=== PATIENT | male | born 1935 | race Caucasian/White ===

== ENCOUNTER 2020-04-15 12:48 | Inpatient (IN) | payer MEDICARE, SELFPAY ==
--- NOTE | ~2020-04-15 | CT_ITS ---
EXAMINATION: CT chest abdomen pelvis w con DATE: 04/17/2020 11:31 INDICATION: Leukocytosis. Scrotal cellulitis. TECHNIQUE: Computed tomography (CT) of the chest, abdomen, and pelvis was performed with 100 mL Omnip aque 350 intravenous contrast. Automated exposure control and iterative reconstruction technique were employed. The dose-length product was 1008.15 mGy-cm. COMPARISON: None FINDINGS: CHEST CT: Motion artifact is noted. There is smooth septal thickening in the lungs, consistent with mild pulmon tigre edema. There are small pleural effusions. The heart size is normal. There are coronary artery yuridia cifications. No pericardial effusion. There is wall thickening of the distal esophagus, likely esopha gitis. There is thoracic dextroscoliosis and mild spondylosis. ABDOMEN/PELVIS CT: Motion artifact is noted. There are cysts in the liver measuring up to 13 mm. The gallbladder, pancre as, adrenal glands, and left kidney are normal. There is a 7 mm mass in right kidney that is too smal l to characterize, but likely a cyst. Stool distends the rectum. There is mild diffuse bladder wall t hickening, likely secondary to chronic outlet obstruction from the mildly enlarged prostate. The appe ndix is normal. There is a right inguinal hernia containing nonobstructed ileum. There is a left ingu inal hernia containing nonobstructed small bowel. Partially visualized is perianal subcutaneous fat s tranding. There are no pathologically enlarged lymph nodes. There is no free intraperitoneal fluid. T here is moderate lumbar spondylosis. IMPRESSION: 1. Mild pulmonary edema with small pleural effusions. 2. Wall thickening of the distal esophagus, likely esophagitis. 3. Stool distends the rectum. 4. Bilateral inguinal hernias containing nonobstructed small bowel. 5. Partially visualized perianal subcutaneous fat stranding, consistent with inflammation. Reviewed, dictated and finalized at location A. IMPRESSION: 1. Mild pulmonary edema with small pleural effusions. 2. Wall thickening of the distal esophagus, likely esophagitis. 3. Stool distends the rectum. 4. Bilateral inguinal hernias containing nonobstructed small bowel. 5. Partially visualized perianal subcutaneous fat stranding, consistent with in flammation.
--- NOTE | ~2020-04-15 | US_ITS ---
EXAMINATION: US soft tissue buttock RT DATE: 04/20/2020 12:44 INDICATION: Right buttock abscess TECHNIQUE: Multiple grayscale and Doppler ultrasound images of the region of concern at the right but tock were obtained. COMPARISON: None FINDINGS: Poorly defined hypoechoic edema interspersed amongst the more hyperechoic fat at the region of concer n. There is a somewhat elongated parenchymal region of decreased echogenicity situated between the de rmis and the subdermal fat which measures approximately 2.1 x 1.3 x 0.8 cm which appears to correspon d to region of more dense edema/phlegmonous change situated posterior to the anus along the right bird e of the gluteal cleft. No organized abscess. IMPRESSION: 1. Subcutaneous surrounding a small region of likely phlegmonous change at the right buttock. No orga nized abscess. Reviewed, dictated and finalized at location B. IMPRESSION: 1. Subcutaneous surrounding a small region of likely phlegmonous change at the right buttock. No organized abscess.
[2020-04-15 13:00] VITALS: BP 122/58; PULSE 85; RESP 18; TEMP 37.7; O2SAT 95
[2020-04-15 13:51] LABS: Hematocrit 24.7 % (37.0-46.0); Hemoglobin 7.7 g/dL (12.4-15.3); Mean Corpuscular HGB Conc 31.2 g/dL (32.0-36.0); Mean Corpuscular Hemoglobin 26.1 pg (27.0-31.0); Mean Corpuscular Volume 83.7 fL (78.0-102.0); Mean Platelet Volume 10.4 fl (8.7-11.0); Platelet Count Result 274 K/mm3 (150-420); Red Blood Count 2.95 M/mm3 (4.70-6.10); Red Cell Distribution Width 16.1 % (11.6-14.4); White Blood Count 17.1 K/mm3 (4.8-10.8)
[2020-04-15 13:52] LABS: Add Urine Microscopic? YES; Appearance Urine Sl Cloudy (Clear); Bilirubin Urine Negative (Negative); Blood Urine 2+ (Negative); Color Urine Amber (Yellow); Glucose Urine UA Negative (Negative); Ketones Urine Negative (Negative); Leukocyte Esterase Ur 1+ (Negative); Nitrate Urine Positive (Negative); Protein Urine 1+ (Negative); Specific Grav Ur 1.025 (1.010-1.020); pH Urine 6.5 (5.0-8.0)
[2020-04-15 13:57] LABS: Bacteria Urine 3+ /hpf; Squamous Epithelial Cell Urine Rare /hpf (Few); WBC Urine 16-20 /hpf (0-3)
[2020-04-15 14:05] LABS: Alanine Aminotransferase 37 U/L (16-63); Albumin Level 2.2 g/dL (3.4-5.0); Alkaline Phosphatase 69 U/L (46-116); Anion Gap 14 mmol/L (8-16); Aspartate Amino Transferase 46 U/L (15-37); Bilirubin,Total 0.4 mg/dL (0.00-1.00); Blood Urea Nitrogen 33 mg/dL (7-18); Calcium 8.5 mg/dL (8.5-10.1); Carbon Dioxide 21 mmol/L (21-32); Chloride 100 mmol/L (98-108); Estimated Glomerular Filt Rate > 60; Glucose 136 mg/dL (70-99); Osmolality Calculated 289 mOsm/kg (285-295); Sodium 135 mmol/L (136-145)
[2020-04-15 14:22] LABS: Lactic Acid Reflex 3.1 mmol/L (0.4-2.0)
--- NOTE | 2020-04-15 14:22 | ED.MALEGU ---
HPI - Male Genitourinary General Chief complaint: Urogenital-Male Stated complaint: scrotum pain and swelling Source: patient and family Mode of arrival: wheelchair Limitations: physical limitation, clinical condition and dementia History of Present Illness HPI Narrative: This is an 85-year-old gentleman that presents with his with no previous past medical history, except for he lives at home and has history of dementia. The patient developed some scrotal swelling and pain he is nonambulatory his takes good care of him and has noticed that he has been having some redness and scrotal swelling with discomfort. Patient has a history of urinary tract infections currently is having some urinary hesitancy with no hematuria there is no diarrhea constipation no hematuria no nausea vomiting. The patient is pleasantly demented currently on no med medications, is having a low-grade temp of 99 8. Patient is nonverbal, communication is via his lives at home and takes care of the patient. MD Complaint: testicle pain and testicle swelling Onset (ago): day(s) Duration: constant Location: right testicle and left testicle Severity: moderate Severity scale (1-10): 7 Quality: aching Relieving factors: rest Exacerbating factors: movement Related Data Home Medications Medication Instructions Recorded Confirmed No Home Medications 04/15/20 04/15/20 Allergies Allergy/AdvReac Type Severity Reaction Status Date / Time No Known Allergies Allergy Verified 04/15/20 13:35 Review of Systems Review of Systems: All systems reviewed & are unremarkable except as noted in HPI and below PMFSH Past Medical History Medical History Dementia Exam Const: General: cooperative and ill appearing Orientation/consciousness: confusion Limitations: altered mental status and physical limitations HENMT: Head: normal to inspection Face and sinus: normal facial exam Mouth: Yes Normal oral and palatal mucosa present Eyes: General: appearance normal, both eyes and all related structures Eyelids: eyelids normal Conjunctivae: conjunctivae normal Sclera: sclerae normal Pupils: Equal, round and reactive pupils present Chest: Chest palpation & inspection: normal inspection of the chest and normal palpation of entire chest wall Resp: Effort & Inspection: normal respiratory effort Auscultation: clear to auscultation bilaterally Cardio: Jugular venous distension: no JVD Palpation: normal PMI Rate: regular rate Rhythm: regular rhythm Heart sounds: S1 normal heart sound present and S2 normal heart sound present GI: Percussion: Yes normal to percussion : Penis: Yes normal penis Scrotum: edematous, erythematous and scrotal swelling Back/Spine/Pelvis: Back: no CVA tenderness Skin: General skin exam: normal color and no rashes or lesions noted Psych: Appearance: well kempt Course Course Emergency Course: reassessment of patient continues to have scrotal discomfort received some Toradol for pain, and discussed the labs and urinalysis results with the patient's and advised that he will be receiving IV fluids and IV antibiotics and he will be admitted to the hospital. Vital Signs Vital signs: Vital Signs Temperature 37.7 C H 04/15/20 13:00 Pulse Rate 85 04/15/20 13:00 Respiratory Rate 18 04/15/20 13:00 Blood Pressure 122/58 L 04/15/20 13:00 Pulse Oximetry 95 04/15/20 13:00 Temperature 37.7 C H 04/15/20 13:00 Pulse Rate 85 04/15/20 13:00 Respiratory Rate 18 04/15/20 13:00 Blood Pressure 122/58 L 04/15/20 13:00 Pulse Oximetry 95 04/15/20 13:00 MDM - Male Genitourinary Lab Data Result diagrams: 04/15/20 13:45 04/15/20 13:45 Labs: Lab Results 04/15/20 04/15/20 04/15/20 Range/Units 13:37 13:45 13:45 WBC 17.1 H (4.8-10.8) K/mm3 RBC 2.95 L (4.70-6.10) M/mm3 Hgb 7.7 L (12.4-15.3) g/dL
[2020-04-15] MEDS: SODIUM CHLORIDE 0.9% IV 1,000 ML 999 ML IV CONT ×2 (14:33→21:17)
[2020-04-15] MEDS: KETOROLAC 30 MG/ML VIAL (*BKC) IV PUSH (14:33)
[2020-04-15 15:15] VITALS: BP 98/61; PULSE 84; RESP 18; O2SAT 98
[2020-04-15 15:35] VITALS: BP 94/31; PULSE 85; RESP 18; TEMP 36.7; O2SAT 97; BMI 22.1
--- NOTE | 2020-04-15 15:35 | ADMGEN ---
This patient, Keith Hobson, was admitted to 2nd Floor Room 207-2. Patient/family oriented to hospital policies and general routines including ID bracelet, bed and alarms, visiting hours, pain management, procedures, bathroom and other care routines, personal items, smoking policy, room service/diet, and visiting hours. Information on how to activate the Rapid Response Team has been discussed. Patient/Family are encouraged to report perceived risks to care and to ask questions if they do not understand what they are told or what they should do.
[2020-04-15 17:06] LABS: Reflex Lactic Acid Yes or No Add Lactic
[2020-04-15] MEDS: SODIUM CHLORIDE 0.9% IV 1,000 ML 100 ML IV CONT (17:09)
[2020-04-15] MEDS: ONDANSETRON INJ 4 MG/2 ML VIAL IV PUSH (17:20)
--- NOTE | 2020-04-15 17:33 | PC.NURSE ---
Patient took 1 bite of supper, would not take any further bites. Zofran given per order. Patient resting on right site. IV fluids infusing. Awake, alert x0.
[2020-04-15 17:54] LABS: Lactic Acid 1.2 mmol/L (0.4-2.0)
--- NOTE | 2020-04-15 18:50 | PC.NURSE ---
in room with patient. Provided with cottage cheese cup and fruit cup. Bed alarm active.
[2020-04-15 20:45] VITALS: BP 84/48; PULSE 76; RESP 18; TEMP 37.4; O2SAT 98
--- NOTE | 2020-04-15 21:12 | PC.NURSE ---
notified that patient's current temp is 99.3 and blood pressure 84/48 with manual blood pressure cuff. New orders received to give NS 1 Liter bolus and Tylenol Suppository Q6H prn.
[2020-04-15 21:35] LABS: Occult Blood Negative (Negative)
[2020-04-15 23:35] VITALS: BP 103/42; PULSE 76; RESP 18; TEMP 37.1; O2SAT 97
[2020-04-16] VITALS (16 sets, daily range): BP systolic 78–122; BP diastolic 30–77; PULSE 60–91; RESP 16–20; TEMP 36.2–38.7; O2SAT 91–100
[2020-04-16] MEDS: ACETAMINOPHEN 650 MG SUPPOSITORY RECTAL ×3 (02:54→20:58)
[2020-04-16] MEDS: ONDANSETRON INJ 4 MG/2 ML VIAL IV PUSH ×3 (02:55→23:28)
[2020-04-16] MEDS: SODIUM CHLORIDE 0.9% IV 1,000 ML 100 ML IV CONT (03:28)
[2020-04-16 06:03] LABS: Basophils Absolute Auto 0.02 K/mm3 (0.00-0.10); Basophils Percent Auto 0.2 % (0.0-1.0); Eosinophils Percent Auto 0.8 % (1.0-6.0); Immature Granulocyte Absolute 0.08 K/mm3 (0.00-0.00); Immature Granulocyte Percent A 0.6 % (0.0-0.0); Lymphocytes Absolute Auto 0.69 K/mm3 (1.10-4.50); Lymphocytes Percent Auto 5.5 % (18.0-42.0); Mean Corpuscular Hemoglobin 25.8 pg (27.0-31.0); Mean Corpuscular Volume 83.3 fL (78.0-102.0); Mean Platelet Volume 9.6 fl (8.7-11.0); Monocytes Percent Auto 4.8 % (2.0-11.0); Neutrophils Absolute Auto 11.1 K/mm3 (1.7-7.2); Neutrophils Percent Auto 88.1 % (50.0-70.0); Platelet Count Result 220 K/mm3 (150-420); Red Cell Distribution Width 16.1 % (11.6-14.4); White Blood Count 12.6 K/mm3 (4.8-10.8)
[2020-04-16 06:31] LABS: Hemoglobin 6.2 g/dL (12.4-15.3)
--- NOTE | 2020-04-16 06:32 | PC.NURSE ---
Lab called to report critical Hgb of 6.2 and Hct of 20.1.
[2020-04-16 06:36] LABS: Alanine Aminotransferase 33 U/L (16-63); Albumin Level 1.8 g/dL (3.4-5.0); Alkaline Phosphatase 54 U/L (46-116); Anion Gap 11 mmol/L (8-16); Aspartate Amino Transferase 32 U/L (15-37); Bilirubin,Total 0.3 mg/dL (0.00-1.00); Blood Urea Nitrogen 30 mg/dL (7-18); Calcium 7.5 mg/dL (8.5-10.1); Carbon Dioxide 21 mmol/L (21-32); Chloride 107 mmol/L (98-108); Estimated CRCL calculation 55 ml/min; Estimated Glomerular Filt Rate > 60; Glucose 104 mg/dL (70-99); Osmolality Calculated 294 mOsm/kg (285-295); Potassium 3.6 mmol/L (3.5-5.1); Sodium 139 mmol/L (136-145); Total Protein 5.1 g/dL (6.4-8.2)
--- NOTE | 2020-04-16 06:36 | PC.NURSE ---
Dr. Miller notified of critical H&H values. New orders received and noted.
[2020-04-16 06:52] LABS: Folic Acid 16.8 ng/mL (8.6->20); Iron 7 ug/dL (65-175); Percent Iron Saturation 4 % (12-57); Vitamin B12 524 pg/mL (193-986)
[2020-04-16 08:48] LABS: Ferritin 101 ng/mL (26-388)
--- NOTE | 2020-04-16 09:58 | PM.IMHP ---
H&P: HPI History of Present Illness Date/Time: 04/16/20 09:58 Chief complaint: scrotum pain and swelling Narrative: Keith Hobsno is a 85 year old male that presented to our ED with swollen scrotum . Patient has a past medical history of dementia. Patient is a poor historian and is unable to participate in this assessment. Information obtained from medical records. According to notes patient developed scrotal swelling. Patient lives at home with his noticed that her was uncomfortable and noticed redness in his scrotum area she also noted that he is currently having urinary hesitancy. Patient does not appear to be in any distress at this time. Review of Systems Review of Systems: All systems reviewed & are unremarkable except as noted in HPI and below (10 point system review) PMFSH Past Medical History Medical History Dementia Social History Social History Smoking status: Unknown if ever smoked Alcohol intake: never Substance use: never Gender identity (if verbalized by the patient): Male Spiritual care concerns: No Meds Home Medications and Allergies Home Medications Medication Instructions Recorded Confirmed Type No Home Medications 04/15/20 04/15/20 History Allergies Allergy/AdvReac Type Severity Reaction Status Date / Time No Known Allergies Allergy Verified 04/15/20 13:35 Vital Signs Vital Signs - 24 hr 04/15/20 13:00 04/15/20 15:15 04/15/20 15:35 Temperature 99.8 F H 98.1 F Pulse Rate 85 84 85 Respiratory Rate 18 18 18 Blood Pressure 122/58 L 98/61 L 94/31 L Pulse Oximetry 95 98 97 04/15/20 20:45 04/15/20 23:35 04/16/20 02:54 Temperature 99.3 F 98.7 F 100 F H Pulse Rate 76 76 Respiratory Rate 18 18 Blood Pressure 84/48 L 103/42 L Pulse Oximetry 98 97 04/16/20 03:03 04/16/20 08:00 Temperature 100 F H 97.4 F L Pulse Rate 78 60 Respiratory Rate 20 18 Blood Pressure 100/45 L 90/30 L Pulse Oximetry 95 97 Exam Narrative: Exam Narrative: GENERAL: Frail demented in no apparent distress. HEAD: normocephalic, atraumatic. EYES: PERRL. Sclera clear/white. Vision is grossly intact. EARS: External ears normal, auditory canals clear and without drainage, TMs normal without perforation. Hearing grossly intact. NOSE: External nose normal with no obvious nasal discharge, nares without redness, no rhinorrhea. THROAT: Mucous membranes moist, posterior pharynx clear. NECK: Neck supple, non-tender without lymphadenopathy, masses or thyromegaly. CARDIOVASCULAR: Regular rate and rhythm without murmurs, gallops, or rubs. RESPIRATORY: Clear to auscultation. Breath sounds equal bilaterally. No wheezes, rales, or rhonchi. GASTROINTESTINAL: Abdomen soft, non-tender, nondistended. Bowel sounds are active. No hepato-splenomegaly, or palpable masses. No guarding. SKIN: warm, intact with no suspicious lesions or rash, scrotum area slightly edematous erythematous. NEURO: awake, alert, and oriented to person, place and time. There were no obvious focal neurologic abnormalities. Steady gait EXTREMITIES: Normal range of motion. No edema. No calf tenderness. Negative Homans sign bilaterally. BACK: Nontender without deformity or crepitance. No flank tenderness. H&P: Results Labs Labs: Short CBC 04/15/20 04/16/20 Range/Units 13:45 05:54 WBC 17.1 H 12.6 H (4.8-10.8) K/mm3 Hgb 7.7 L 6.2 L* (12.4-15.3) g/dL Hct 24.7 L 20.0 L (37.0-46.0) % Plt Count 274 220 (150-420) K/mm3 BMP 04/15/20 04/16/20 13:45 05:54 Sodium 135 L 139 Potassium 4.0 3.6 Chloride 100 107 Carbon Dioxide 21 21 BUN 33 H 30 H Creatinine 1.09 0.84 Glucose 136 H 104 H Calcium 8.5 7.5 L Liver Function 04/15/20 04/16/20 Range/Units 13:45 05:54 Total Bilirubin 0.4 0.3 (0.00-1.00) mg/dL AST 46 H 32 (15-37) U/L ALT 37 33 (16-63) U/L
[2020-04-16] MEDS: SODIUM CHLORIDE 0.9% IV 250 ML 100 ML IV CONT (10:26)
[2020-04-16] MEDS: FERROUS GLUCONATE 324 MG TABLET 325 MG PO (10:26)
--- NOTE | 2020-04-16 11:40 | PC.NURSE ---
rate increased to 125ml/hr. Patient tolerating Blood transfusion well.
[2020-04-16 14:12] LABS: Hemoglobin 8.1 g/dL (12.4-15.3)
[2020-04-16 18:06] LABS: Hematocrit 28.6 % (37.0-46.0); Hemoglobin 8.8 g/dL (12.4-15.3)
[2020-04-16] MEDS: LORazepam INJ (*CRX) 2 MG/ML VIAL 0.5 MG IV PUSH (18:39)
--- NOTE | 2020-04-16 18:44 | PC.NURSE ---
Patients left. Patient cont. to be restless and appears continually moaning. Patient given Ativan per order. Resting in bed with hob elevated. Pillow applied for comfort. Bed alarm active.
[2020-04-16] MEDS: DOCUSATE SODIUM LIQ 100 MG/10 ML UDC PO (20:58)
[2020-04-17] VITALS (13 sets, daily range): BP systolic 105–143; BP diastolic 41–62; PULSE 79–95; RESP 20–24; TEMP 36.7–38; O2SAT 92–97
[2020-04-17 05:46] LABS: Basophils Absolute Auto 0.03 K/mm3 (0.00-0.10); Basophils Percent Auto 0.2 % (0.0-1.0); Eosinophils Absolute Auto 0.17 K/mm3 (0.02-0.50); Eosinophils Percent Auto 1.2 % (1.0-6.0); Hematocrit 24.5 % (37.0-46.0); Hemoglobin 7.6 g/dL (12.4-15.3); Immature Granulocyte Absolute 0.09 K/mm3 (0.00-0.00); Immature Granulocyte Percent A 0.6 % (0.0-0.0); Lymphocytes Absolute Auto 1.26 K/mm3 (1.10-4.50); Lymphocytes Percent Auto 8.9 % (18.0-42.0); Mean Corpuscular Hemoglobin 26.3 pg (27.0-31.0); Mean Corpuscular Volume 84.8 fL (78.0-102.0); Mean Platelet Volume 10.4 fl (8.7-11.0); Monocytes Absolute Auto 0.65 K/mm3 (0.10-0.90); Monocytes Percent Auto 4.6 % (2.0-11.0); Neutrophils Absolute Auto 11.9 K/mm3 (1.7-7.2); Neutrophils Percent Auto 84.5 % (50.0-70.0); Platelet Count Result 235 K/mm3 (150-420); Red Blood Count 2.89 M/mm3 (4.70-6.10); Red Cell Distribution Width 16.1 % (11.6-14.4); White Blood Count 14.1 K/mm3 (4.8-10.8)
[2020-04-17 06:00] LABS: Alanine Aminotransferase 45 U/L (16-63); Albumin Level 1.9 g/dL (3.4-5.0); Alkaline Phosphatase 57 U/L (46-116); Anion Gap 10 mmol/L (8-16); Aspartate Amino Transferase 40 U/L (15-37); Bilirubin,Total 0.6 mg/dL (0.00-1.00); Blood Urea Nitrogen 20 mg/dL (7-18); Calcium 7.8 mg/dL (8.5-10.1); Carbon Dioxide 24 mmol/L (21-32); Chloride 108 mmol/L (98-108); Estimated CRCL calculation 54 ml/min; Estimated Glomerular Filt Rate > 60; Glucose 109 mg/dL (70-99); Osmolality Calculated 297 mOsm/kg (285-295); Sodium 142 mmol/L (136-145); Total Protein 5.4 g/dL (6.4-8.2)
--- NOTE | 2020-04-17 06:40 | PC.NURSE ---
Dr. Mo notified of pt's H&H of 7.6 and 24.5. No new orders at this time.
[2020-04-17 08:19] LABS: Thyroid Stimulating Hormone Reflex 2.87 u/IU/mL (0.36-3.74)
[2020-04-17] MEDS: FERROUS GLUCONATE 324 MG TABLET 325 MG PO (09:32)
[2020-04-17] MEDS: polyethylene glycoL 3350 17 GM POWD.PACK PO (09:33)
--- NOTE | 2020-04-17 11:13 | PC.NURSE ---
Patient off of floor CT scan
--- NOTE | 2020-04-17 11:24 | PC.NURSE ---
Patient transported back to floor
--- NOTE | 2020-04-17 11:26 | P.PN_ITS ---
Progress Note: A&P Assessment and Plan (1) UTI (urinary tract infection): Qualifiers: Hematuria presence: without hematuria Urinary tract infection type: acute cystitis Qualified Code(s): N30.00 - Acute cystitis without hematuria Code(s): N39.0 - Urinary tract infection, site not specified Status: Acute Assessment and Plan: * Patient UA indicates nitrate leukocytes and bacteria * UA culture and blood culture pending * Continue Rocephin day 2 (2) Scrotal swelling: Code(s): N50.89 - Other specified disorders of the male genital organs Status: Acute Assessment and Plan: * Secondary to cellulitis of the scrotum * Patient WBC 17.1 on admission currently 12.2, now 14 * Patient lactic acid on admission 3.1 then 1.2 now 1.0 trending down * Continue Rocephin day 2 (3) Cellulitis of scrotum: Code(s): N49.2 - Inflammatory disorders of scrotum Status: Acute Assessment and Plan: * Patient WBC 17.1 on admission then 12.2 now 14 * Patient lactic acid on admission 3.1 then 1.2 now 1.0 trending down * Continue Rocephin day 2 (4) Dementia: Code(s): F03.90 - Unspecified dementia without behavioral disturbance Status: Acute Assessment and Plan: * Patient no on home medication (5) Anemia: Code(s): D64.9 - Anemia, unspecified Status: Acute Assessment and Plan: * Secondary to anemia of chronic disease * Patient hemoglobin on admission 7.7 then 6 after transfusion 8 now 7. We will complete a CT of the abdomen chest and pelvis * Patient transfused 1 unit of PRBC. Will possibly need to transfuse 1 more unit * Will monitor H&H at 12:00 * Iron study test indicate iron deficiency anemia * Will start supplement with stool softeners and laxative to prevent constipation * Patient occult blood negative (6) Hypotensive episode: Code(s): I95.9 - Hypotension, unspecified Status: Acute Assessment and Plan: * Possibly secondary to anemia * Patient given 2 L of fluid * Continue IV hydration * Patient will be transfused 1 unit of PRBCs, patient blood pressure will possibly improve after infusion. * According to my patients normal blood pressure is 80/40. Today blood pressure 108/61 Review of Systems Review of Systems: All systems reviewed & are unremarkable except as noted in HPI and below (10 point system review) Exam Narrative: Exam Narrative: GENERAL: Frail demented in no apparent distress. HEAD: normocephalic, atraumatic. EYES: PERRL. Sclera clear/white. Vision is grossly intact. EARS: External ears normal, auditory canals clear and without drainage, TMs normal without perforation. Hearing grossly intact. NOSE: External nose normal with no obvious nasal discharge, nares without redness, no rhinorrhea. THROAT: Mucous membranes moist, posterior pharynx clear. NECK: Neck supple, non-tender without lymphadenopathy, masses or thyromegaly. CARDIOVASCULAR: Regular rate and rhythm without murmurs, gallops, or rubs. RESPIRATORY: Clear to auscultation. Breath sounds equal bilaterally. No wheezes, rales, or rhonchi. GASTROINTESTINAL: Abdomen soft, non-tender, nondistended. Bowel sounds are active. No hepato-splenomegaly, or palpable masses. No guarding. SKIN: warm, intact with no suspicious lesions or rash, scrotum area slightly edematous erythematous. NEURO: awake, alert, and oriented to person, place and time. There were no obvious focal neurologic abnormalities. Steady gait EXTREMITIES: Normal range of motion. No edema. No calf tenderness. Negative Homans
--- NOTE | 2020-04-17 11:26 | WPDPN ---
Progress Note: A&P Assessment and Plan (1) UTI (urinary tract infection): Qualifiers: Hematuria presence: without hematuria Urinary tract infection type: acute cystitis Qualified Code(s): N30.00 - Acute cystitis without hematuria Code(s): N39.0 - Urinary tract infection, site not specified Status: Acute Assessment and Plan: Patient UA indicates nitrate leukocytes and bacteria UA culture and blood culture pending Continue Rocephin day 2 (2) Scrotal swelling: Code(s): N50.89 - Other specified disorders of the male genital organs Status: Acute Assessment and Plan: Secondary to cellulitis of the scrotum Patient WBC 17.1 on admission currently 12.2, now 14 Patient lactic acid on admission 3.1 then 1.2 now 1.0 trending down Continue Rocephin day 2 (3) Cellulitis of scrotum: Code(s): N49.2 - Inflammatory disorders of scrotum Status: Acute Assessment and Plan: Patient WBC 17.1 on admission then 12.2 now 14 Patient lactic acid on admission 3.1 then 1.2 now 1.0 trending down Continue Rocephin day 2 (4) Dementia: Code(s): F03.90 - Unspecified dementia without behavioral disturbance Status: Acute Assessment and Plan: Patient no on home medication (5) Anemia: Code(s): D64.9 - Anemia, unspecified Status: Acute Assessment and Plan: Secondary to anemia of chronic disease Patient hemoglobin on admission 7.7 then 6 after transfusion 8 now 7. We will complete a CT of the abdomen chest and pelvis Patient transfused 1 unit of PRBC. Will possibly need to transfuse 1 more unit Will monitor H&H at 12:00 Iron study test indicate iron deficiency anemia Will start supplement with stool softeners and laxative to prevent constipation Patient occult blood negative (6) Hypotensive episode: Code(s): I95.9 - Hypotension, unspecified Status: Acute Assessment and Plan: Possibly secondary to anemia Patient given 2 L of fluid Continue IV hydration Patient will be transfused 1 unit of PRBCs, patient blood pressure will possibly improve after infusion. According to my patients normal blood pressure is 80/40. Today blood pressure 108/61 Review of Systems Review of Systems: All systems reviewed & are unremarkable except as noted in HPI and below (10 point system review) Exam Narrative: Exam Narrative: GENERAL: Frail demented in no apparent distress. HEAD: normocephalic, atraumatic. EYES: PERRL. Sclera clear/white. Vision is grossly intact. EARS: External ears normal, auditory canals clear and without drainage, TMs normal without perforation. Hearing grossly intact. NOSE: External nose normal with no obvious nasal discharge, nares without redness, no rhinorrhea. THROAT: Mucous membranes moist, posterior pharynx clear. NECK: Neck supple, non-tender without lymphadenopathy, masses or thyromegaly. CARDIOVASCULAR: Regular rate and rhythm without murmurs, gallops, or rubs. RESPIRATORY: Clear to auscultation. Breath sounds equal bilaterally. No wheezes, rales, or rhonchi. GASTROINTESTINAL: Abdomen soft, non-tender, nondistended. Bowel sounds are active. No hepato-splenomegaly, or palpable masses. No guarding. SKIN: warm, intact with no suspicious lesions or rash, scrotum area slightly edematous erythematous. NEURO: awake, alert, and oriented to person, place and time. There were no obvious focal neurologic abnormalities. Steady gait EXTREMITIES: Normal range of motion. No edema. No calf tenderness. Negative Homans sign bilaterally. BACK: Nontender without deformity or crepitance. No flank tenderness. Objective Data Vital Signs Vital Signs: Vital Signs - 24 hr 04/16/20 11:38 04/16/20 12:00 04/16/20 12:38 Temperature 98.1 F 98.7 F 97.7 F Pulse Rate 61 67 67 Respiratory Rate 18 18 18 Blood Pressure 98/39 L 110/47 L 110/47 L Pulse Oximetry 98 98 98 04/16/20 15:35 04/16/20 15:41 04/16/20 17:50 Temper
--- NOTE | 2020-04-17 11:48 | PC.NURSE ---
Didn't here a response from email to [facility] about bedside swallow or was past down that they called. Notified Judie from [facility] at #[phone] left voice message about speech eval.
[2020-04-17 11:56] LABS: Hematocrit 23.2 % (37.0-46.0); Hemoglobin 7.4 g/dL (12.4-15.3)
[2020-04-17 12:12] LABS: Lactic Acid Reflex 2.1 mmol/L (0.4-2.0)
[2020-04-17] MEDS: ENOXAPARIN 40 MG/0.4 ML SYRINGE SUB-Q (13:52)
[2020-04-17] MEDS: SODIUM CHLORIDE 0.9% IV 250 ML 30 ML IV CONT (14:42)
[2020-04-17 14:52] LABS: Reflex Lactic Acid Yes or No Add Lactic
--- NOTE | 2020-04-17 15:00 | PC.NURSE ---
Blood transfusion started 100ml/hr ,1500 Blood transfusion continued 125ml/hr ,1515 Blood transfusion continued 150ml/hr , 1615 Blood transfusion continued 150ml/hr ,1715 complete
[2020-04-17] MEDS: ACETAMINOPHEN 650 MG SUPPOSITORY RECTAL ×2 (15:24→21:16)
--- NOTE | 2020-04-17 16:25 | PC.NURSE ---
Patient's first 2 sets of blood pressures higher. Patient non verbal, contracted. Doesn't contracts arms and legs harder. Third blood pressure lower which is patient's norm.
--- NOTE | 2020-04-17 17:11 | PCSTNOTE ---
Please refer to the Bedside Swallow Evaluation in the EMR.
[2020-04-17 19:04] LABS: Hematocrit 28.6 % (37.0-46.0); Hemoglobin 9.1 g/dL (12.4-15.3)
[2020-04-17 19:23] LABS: Lactic Acid 1.6 mmol/L (0.4-2.0)
[2020-04-17] MEDS: LORazepam INJ (*CRX) 2 MG/ML VIAL 0.5 MG IV PUSH (20:16)
[2020-04-17] MEDS: LACTULOSE 20 GM/30 ML UDC PO (20:16)
--- NOTE | 2020-04-18 01:23 | PC.NURSE ---
[facility] care provided.
[2020-04-18 05:46] LABS: Basophils Absolute Auto 0.05 K/mm3 (0.00-0.10); Basophils Percent Auto 0.4 % (0.0-1.0); Eosinophils Absolute Auto 0.91 K/mm3 (0.02-0.50); Eosinophils Percent Auto 6.7 % (1.0-6.0); Hematocrit 27.1 % (37.0-46.0); Hemoglobin 8.6 g/dL (12.4-15.3); Immature Granulocyte Absolute 0.11 K/mm3 (0.00-0.00); Immature Granulocyte Percent A 0.8 % (0.0-0.0); Lymphocytes Percent Auto 8.8 % (18.0-42.0); Mean Corpuscular HGB Conc 31.7 g/dL (32.0-36.0); Mean Corpuscular Hemoglobin 27.1 pg (27.0-31.0); Mean Corpuscular Volume 85.5 fL (78.0-102.0); Mean Platelet Volume 10.2 fl (8.7-11.0); Monocytes Absolute Auto 0.82 K/mm3 (0.10-0.90); Neutrophils Absolute Auto 10.5 K/mm3 (1.7-7.2); Neutrophils Percent Auto 77.3 % (50.0-70.0); Platelet Count Result 242 K/mm3 (150-420); Red Blood Count 3.17 M/mm3 (4.70-6.10); Red Cell Distribution Width 15.9 % (11.6-14.4); White Blood Count 13.6 K/mm3 (4.8-10.8)
[2020-04-18 06:05] LABS: Alanine Aminotransferase 52 U/L (16-63); Albumin Level 1.7 g/dL (3.4-5.0); Alkaline Phosphatase 59 U/L (46-116); Anion Gap 9 mmol/L (8-16); Aspartate Amino Transferase 39 U/L (15-37); Bilirubin,Total 0.5 mg/dL (0.00-1.00); Blood Urea Nitrogen 15 mg/dL (7-18); Calcium 8.1 mg/dL (8.5-10.1); Carbon Dioxide 24 mmol/L (21-32); Chloride 108 mmol/L (98-108); Estimated CRCL calculation 56 ml/min; Estimated Glomerular Filt Rate > 60; Glucose 104 mg/dL (70-99); Osmolality Calculated 292 mOsm/kg (285-295); Potassium 3.8 mmol/L (3.5-5.1); Sodium 141 mmol/L (136-145); Total Protein 5.9 g/dL (6.4-8.2)
[2020-04-18 06:06] LABS: Lactic Acid Reflex 1.2 mmol/L (0.4-2.0)
--- NOTE | 2020-04-18 06:16 | PC.NURSE ---
Pt inc of urine & lg amt thin liquid yellow stool with a few tiny pieces of brown stool.. Inc care provided. Barrier cream applied.
[2020-04-18 08:00] VITALS: BP 101/44; PULSE 61; RESP 22; TEMP 36.8; O2SAT 96
--- NOTE | 2020-04-18 09:28 | PM.IMPN ---
Progress Note: A&P Assessment and Plan (1) UTI (urinary tract infection): Qualifiers: Hematuria presence: without hematuria Urinary tract infection type: acute cystitis Qualified Code(s): N30.00 - Acute cystitis without hematuria Code(s): N39.0 - Urinary tract infection, site not specified Status: Acute Assessment and Plan: Patient UA indicates nitrate leukocytes and bacteria 04/18/2020 continue with Rocephin, today is day 3, urine cultures and blood cultures have no growth at this time, will continue to monitor (2) Scrotal swelling: Code(s): N50.89 - Other specified disorders of the male genital organs Status: Acute Assessment and Plan: 04/18/2020 scrotum does not appear swollen today, normal skin appearance, will continue with Rocephin, patient has briefs on which nursing staff is changing regularly to avoid moisture and skin breakdown (3) Cellulitis of scrotum: Code(s): N49.2 - Inflammatory disorders of scrotum Status: Acute Assessment and Plan: 04/18/2020 scrotum does not appear swollen today, normal skin appearance, will continue with Rocephin, patient has briefs on which nursing staff is changing regularly to avoid moisture and skin breakdown, white blood count improving (4) Dementia: Code(s): F03.90 - Unspecified dementia without behavioral disturbance Status: Acute Assessment and Plan: 04/18/2020 no change in mental status, incapable of communication (5) Anemia: Code(s): D64.9 - Anemia, unspecified Status: Acute Assessment and Plan: 04/18/2020 patient's anemia is now stable, he did receive 2 units PRBCs, will continue to monitor, will contact PCP per Dr. Julien to identify chronicity of the anemia and any type of anemia this patient has, Pt is not on any home medications, also will do 2 more occult stools 1st of 3 was negative. (6) Hypotensive episode: Code(s): I95.9 - Hypotension, unspecified Status: Acute Assessment and Plan: 04/18/2020 vital signs are stable, no report from nursing staff of hypertension, documented vital signs reflect this, will continue to monitor Subjective Date/time seen: 04/18/20 09:28 patient is unable to communicate, he is contracted, lays in bed, coughs and moans on occasion called today with concerns of a stage II quarter-sized decubitus ulcer on the right posterior, current Chrissy adhesive barriers in place and Q2 hours turns Review of Systems Review of Systems: ROS unobtainable: Yes unobtainable due to mental status Exam Const: General: awake Limitations: other limitations (history of dementia) Resp: Effort & Inspection: normal respiratory effort and Actively coughing (occasional) Auscultation: clear to auscultation bilaterally Cardio: Rate: regular rate Rhythm: regular rhythm Heart sounds: S1 normal heart sound present and S2 normal heart sound present GI: Auscultation: Hypoactive bowel sounds present Skin: General skin exam: pallor Wounds: wounds noted (stage II decubitus ulcer right lower buttocks) Neuro: Cognition (Neuro): abnormal cognition (patient only moans, does not say any words) Other: generalized body contractures Extrem: Other: no bed sores noted on lower extremities Objective Data Vital Signs Vital Signs: Vital Signs - 24 hr 04/17/20 15:01 04/17/20 15:06 04/17/20 15:15 Temperature 99.5 F 99.5 F 99.7 F H Pulse Rate 95 95 91 Respiratory Rate 24 H 24 H 24 H Blood Pressure 142/58 H 142/58 H 143/62 H Pulse Oximetry 95 95 94 04/17/20 15:24 04/17/20 16:15 04/17/20 17:15 Temperature 99.7 F H 98.4 F 100.2 F H Pulse Rate 79 92 Respiratory Rate 24 H 24 H Blood Pressure 105/43 L 131/41 L Pulse Oximetry 96 95 04/17/20 18:42 04/17/20 21:16 04/17/20 21:22 Temperature 100.2 F H 100.4 F H 100.4 F H Pulse Rate Respiratory Rate Blood Pressure Pulse Oximetry 04/17/20 22:36 04/17/20 23:40 04/18/20
[2020-04-18] MEDS: PANTOPRAZOLE SODIUM IV 40 MG VIAL IV PUSH (09:45)
[2020-04-18] MEDS: BISACODYL 10 MG SUPPOSITORY RECTAL (09:45)
[2020-04-18] MEDS: polyethylene glycoL 3350 17 GM POWD.PACK PO (09:45)
[2020-04-18] MEDS: FERROUS GLUCONATE 324 MG TABLET 325 MG PO (09:45)
[2020-04-18] MEDS: ACETAMINOPHEN 650 MG SUPPOSITORY RECTAL ×2 (09:45→18:22)
[2020-04-18] MEDS: DOCUSATE SODIUM LIQ 100 MG/10 ML UDC PO (09:45)
[2020-04-18] MEDS: ENOXAPARIN 40 MG/0.4 ML SYRINGE SUB-Q (12:49)
[2020-04-18 13:27] LABS: Occult Blood Positive (Negative)
[2020-04-18 16:00] VITALS: BP 129/54; PULSE 90; RESP 22; TEMP 39.1; O2SAT 98
[2020-04-18 18:22] VITALS: TEMP 39.1
[2020-04-18 20:00] VITALS: TEMP 37.8
--- NOTE | 2020-04-18 20:00 | PC.NURSE ---
Ice placed under arm and across neck for elevated temperature
--- NOTE | 2020-04-18 22:02 | PM.EVENT ---
Event Note Event Note Event Note: I have examined the patient and reviewed the chart. I did discuss the patient's care with Guy Gates APN and agree with his assessment and plan.
[2020-04-18] MEDS: LACTULOSE 20 GM/30 ML UDC PO (22:06)
--- NOTE | 2020-04-18 22:23 | PC.NURSE ---
Patient took 10ml of Lactulose, 5ml at a time. Second 5ml patient held in his mouth. Remainder of Lactulose held until patient swallows.
[2020-04-19] VITALS: BP 129/54; PULSE 98; RESP 20; TEMP 38.3; O2SAT 94
--- NOTE | 2020-04-19 01:23 | PC.NURSE ---
Sleeping; no signs of distress.
[2020-04-19 02:00] VITALS: TEMP 37.6
--- NOTE | 2020-04-19 07:53 | PM.IMPN ---
Progress Note: A&P Assessment and Plan (1) UTI (urinary tract infection): Qualifiers: Hematuria presence: without hematuria Urinary tract infection type: acute cystitis Qualified Code(s): N30.00 - Acute cystitis without hematuria Code(s): N39.0 - Urinary tract infection, site not specified Status: Acute Assessment and Plan: Patient UA indicates nitrate leukocytes and bacteria 04/18/2020 continue with Rocephin, today is day 3, urine cultures and blood cultures have no growth at this time, will continue to monitor 04/19/2020 sensitivities resulted today patient has MRSA Rocephin will be stopped and Vancomycin continued with pharmacy to follow and does, WBC improved today, patient is on isolation now (2) Scrotal swelling: Code(s): N50.89 - Other specified disorders of the male genital organs Status: Acute Assessment and Plan: 04/18/2020 scrotum does not appear swollen today, normal skin appearance, will continue with Rocephin, patient has briefs on which nursing staff is changing regularly to avoid moisture and skin breakdown 04/19/2020 scrotum is normal in appearance, patient does scratch near his groin area frequently which may have been the cause (3) Cellulitis of scrotum: Code(s): N49.2 - Inflammatory disorders of scrotum Status: Acute Assessment and Plan: 04/18/2020 scrotum does not appear swollen today, normal skin appearance, will continue with Rocephin, patient has briefs on which nursing staff is changing regularly to avoid moisture and skin breakdown, white blood count improving 04/19/2020 scrotum is normal in appearance as noted above (4) Dementia: Code(s): F03.90 - Unspecified dementia without behavioral disturbance Status: Acute Assessment and Plan: 04/18/2020 no change in mental status, incapable of communication 04/19/2020 no change (5) Anemia: Code(s): D64.9 - Anemia, unspecified Status: Acute Assessment and Plan: 04/18/2020 patient's anemia is now stable, he did receive 2 units PRBCs, will continue to monitor, will contact PCP per Dr. Julien to identify chronicity of the anemia and any type of anemia this patient has, Pt is not on any home medications, also will do 2 more occult stools 1st of 3 was negative. 04/19/2020 H/H slight decreased today 8.6/27.1, will continue to monitor (6) Hypotensive episode: Code(s): I95.9 - Hypotension, unspecified Status: Acute Assessment and Plan: 04/18/2020 vital signs are stable, no report from nursing staff of hypertension, documented vital signs reflect this, will continue to monitor 04/19/2020 vital signs stable, patient does have elevated temperature during the night and normal during the day, will continue to monitor Subjective Date/time seen: 04/19/20 07:53 patient is unable to speak. is in room saying patient looks better and she is looking forward to taking him home so she can continue to take care of him Review of Systems Review of Systems: ROS unobtainable: Yes unobtainable due to mental status Exam Const: General: no acute distress (patient moans once in a while and coughs once in a while) and awake Resp: Auscultation: clear to auscultation bilaterally Cardio: Rate: regular rate Rhythm: regular rhythm Heart sounds: S1 normal heart sound present and S2 normal heart sound present GI: GI Palp: Yes Soft to palpation Auscultation: Hypoactive bowel sounds present Skin: Other: small quarter-size stage II decubitus ulcer right lower buttocks, will add Santyl Extrem: Other: contracted with very decreased range of motion Psych: Speech and movement: Other speech and movement exam findings present (Psych) (patient only moans and coughs) Objective Data Vital Signs Vital Signs: Vital Signs - 24 hr 04/18/20 08:00 04/18/20 16:00 04/18/20 18:22 Temperature 98.3 F 102.3 F H 102.3 F H Pulse Rate 61 90 Respiratory Rate 22 H
[2020-04-19 08:00] VITALS: BP 114/51; PULSE 63; RESP 22; TEMP 36.1; O2SAT 95
[2020-04-19 08:20] LABS: Hematocrit 25.7 % (37.0-46.0); Hemoglobin 8.2 g/dL (12.4-15.3); Mean Corpuscular HGB Conc 31.9 g/dL (32.0-36.0); Mean Corpuscular Hemoglobin 27.1 pg (27.0-31.0); Mean Corpuscular Volume 84.8 fL (78.0-102.0); Mean Platelet Volume 9.9 fl (8.7-11.0); Platelet Count Result 242 K/mm3 (150-420); Red Blood Count 3.03 M/mm3 (4.70-6.10); Red Cell Distribution Width 16.4 % (11.6-14.4); White Blood Count 11.4 K/mm3 (4.8-10.8)
[2020-04-19 08:36] LABS: Anion Gap 7 mmol/L (8-16); Blood Urea Nitrogen 15 mg/dL (7-18); Calcium 8.1 mg/dL (8.5-10.1); Carbon Dioxide 26 mmol/L (21-32); Chloride 107 mmol/L (98-108); Estimated CRCL calculation 60 ml/min; Estimated Glomerular Filt Rate > 60; Glucose 100 mg/dL (70-99); Osmolality Calculated 290 mOsm/kg (285-295); Potassium 3.8 mmol/L (3.5-5.1); Sodium 140 mmol/L (136-145); Vancomycin Trough 4.3 ug/mL (10.0-15.0)
[2020-04-19] MEDS: FERROUS GLUCONATE 324 MG TABLET 325 MG PO (09:02)
[2020-04-19] MEDS: DOCUSATE SODIUM LIQ 100 MG/10 ML UDC PO (09:02)
[2020-04-19] MEDS: PANTOPRAZOLE SODIUM IV 40 MG VIAL IV PUSH (09:03)
[2020-04-19] MEDS: polyethylene glycoL 3350 17 GM POWD.PACK PO (09:03)
[2020-04-19 16:00] VITALS: BP 112/52; PULSE 71; RESP 20; TEMP 36.6; O2SAT 95
[2020-04-19] MEDS: LACTULOSE 20 GM/30 ML UDC PO (21:07)
[2020-04-19] MEDS: COLLAGENASE OINT 30 GM TUBE 1 APPLIC TOPICAL (21:09)
[2020-04-19] MEDS: LORazepam INJ (*CRX) 2 MG/ML VIAL 0.5 MG IV PUSH (23:58)
[2020-04-19] MEDS: ONDANSETRON INJ 4 MG/2 ML VIAL IV PUSH (23:59)
--- NOTE | 2020-04-19 23:59 | PC.NURSE ---
Patient continuously yelling out and is unable to be consoled. Patient was repositioned for comfort. Patient also noted to have hiccups.
[2020-04-20] VITALS: BP 109/64; PULSE 72; RESP 20; TEMP 36.3; O2SAT 94
[2020-04-20 06:01] LABS: Estimated CRCL calculation 58 ml/min; Estimated Glomerular Filt Rate > 60
[2020-04-20 07:40] VITALS: BP 104/44; PULSE 61; RESP 18; TEMP 35.9; O2SAT 94
[2020-04-20 08:01] LABS: Hematocrit 26.7 % (37.0-46.0); Hemoglobin 8.3 g/dL (12.4-15.3)
--- NOTE | 2020-04-20 08:58 | PM.IMPN ---
Progress Note: A&P Assessment and Plan (1) UTI (urinary tract infection): Qualifiers: Hematuria presence: without hematuria Urinary tract infection type: acute cystitis Qualified Code(s): N30.00 - Acute cystitis without hematuria Code(s): N39.0 - Urinary tract infection, site not specified Status: Acute Assessment and Plan: Patient UA indicates nitrate leukocytes and bacteria 04/18/2020 continue with Rocephin, today is day 3, urine cultures and blood cultures have no growth at this time, will continue to monitor 04/19/2020 sensitivities resulted today patient has MRSA Rocephin will be stopped and Vancomycin continued with pharmacy to follow and does, WBC improved today, patient is on isolation now 04/20/2020 continue with Vancomycin, Vancomycin trough from yesterday is low at 4.3, pharmacy is following and dosing (2) Scrotal swelling: Code(s): N50.89 - Other specified disorders of the male genital organs Status: Acute Assessment and Plan: 04/18/2020 scrotum does not appear swollen today, normal skin appearance, will continue with Rocephin, patient has briefs on which nursing staff is changing regularly to avoid moisture and skin breakdown 04/19/2020 scrotum is normal in appearance, patient does scratch near his groin area frequently which may have been the cause 04/20/2020 at this time I would say scrotum swelling has resolved, however today on inspection of the right gluteal ulcer and indurated area was found from just superior to that ulceration to the right side of the scrotum near the gluteal cleft on the right buttock, an ultrasound was obtained and this was discussed with Dr. Miller and it was determined this was something the patient can follow-up with his primary care provider after discharge. (3) Cellulitis of scrotum: Code(s): N49.2 - Inflammatory disorders of scrotum Status: Acute Assessment and Plan: 04/18/2020 scrotum does not appear swollen today, normal skin appearance, will continue with Rocephin, patient has briefs on which nursing staff is changing regularly to avoid moisture and skin breakdown, white blood count improving 04/19/2020 scrotum is normal in appearance as noted above 04/20/2020 this has resolved (4) Dementia: Code(s): F03.90 - Unspecified dementia without behavioral disturbance Status: Acute Assessment and Plan: 04/18/2020 no change in mental status, incapable of communication 04/19/2020 no change 04/20/2020 no change (5) Anemia: Code(s): D64.9 - Anemia, unspecified Status: Acute Assessment and Plan: 04/18/2020 patient's anemia is now stable, he did receive 2 units PRBCs, will continue to monitor, will contact PCP per Dr. Julien to identify chronicity of the anemia and any type of anemia this patient has, Pt is not on any home medications, also will do 2 more occult stools 1st of 3 was negative. 04/19/2020 H/H slight decreased today 8.6/27.1, will continue to monitor 04/20/2020 H/H 8.3/26.7 and will continue to monitor (6) Hypotensive episode: Code(s): I95.9 - Hypotension, unspecified Status: Acute Assessment and Plan: 04/18/2020 vital signs are stable, no report from nursing staff of hypertension, documented vital signs reflect this, will continue to monitor 04/19/2020 vital signs stable, patient does have elevated temperature during the night and normal during the day, will continue to monitor 04/20/2020 vital signs stable, will continue to monitor, no elevated temperature throughout the night Subjective Date/time seen: 04/20/20 08:58 Review of Systems Review of Systems: ROS unobtainable: Yes unobtainable due to mental status (as noted on previous documents patient coughs and grunts only) Exam Const: General: alert Nutritional Appearance: average body habitus Resp: Effort & Inspection: normal respiratory effort Auscultation: clear to auscultation bilaterall
[2020-04-20] MEDS: FERROUS GLUCONATE 324 MG TABLET 325 MG PO (09:09)
[2020-04-20] MEDS: PANTOPRAZOLE SODIUM IV 40 MG VIAL IV PUSH (09:09)
[2020-04-20] MEDS: DOCUSATE SODIUM LIQ 100 MG/10 ML UDC PO (09:09)
[2020-04-20] MEDS: polyethylene glycoL 3350 17 GM POWD.PACK PO (09:10)
[2020-04-20] MEDS: COLLAGENASE OINT 30 GM TUBE 1 APPLIC TOPICAL ×2 (09:10→21:20)
--- NOTE | 2020-04-20 11:04 | PC.NURSE ---
Patient moved to 208 for needing 207 an ER patient coming up. help desk rep notified.
[2020-04-20 15:45] VITALS: BP 105/42; PULSE 73; RESP 20; TEMP 36.9; O2SAT 92
[2020-04-20] MEDS: LACTULOSE 20 GM/30 ML UDC PO (21:20)
[2020-04-20 23:55] VITALS: BP 116/58; PULSE 68; TEMP 36.2; O2SAT 99
[2020-04-21 07:50] VITALS: BP 122/77; PULSE 61; RESP 20; TEMP 36.1; O2SAT 93
[2020-04-21 08:40] LABS: Hematocrit 27.2 % (37.0-46.0); Hemoglobin 8.5 g/dL (12.4-15.3); Mean Corpuscular HGB Conc 31.3 g/dL (32.0-36.0); Mean Corpuscular Hemoglobin 26.6 pg (27.0-31.0); Mean Platelet Volume 9.9 fl (8.7-11.0); Platelet Count Result 278 K/mm3 (150-420); Red Cell Distribution Width 16.9 % (11.6-14.4); White Blood Count 10.8 K/mm3 (4.8-10.8)
[2020-04-21 08:58] LABS: Anion Gap 9 mmol/L (8-16); Blood Urea Nitrogen 11 mg/dL (7-18); Calcium 7.7 mg/dL (8.5-10.1); Carbon Dioxide 26 mmol/L (21-32); Chloride 104 mmol/L (98-108); Estimated CRCL calculation 58 ml/min; Estimated Glomerular Filt Rate > 60; Glucose 99 mg/dL (70-99); Osmolality Calculated 287 mOsm/kg (285-295); Potassium 3.8 mmol/L (3.5-5.1); Sodium 139 mmol/L (136-145)
[2020-04-21] MEDS: FERROUS GLUCONATE 324 MG TABLET 325 MG PO (09:18)
[2020-04-21] MEDS: COLLAGENASE OINT 30 GM TUBE 1 APPLIC TOPICAL (09:18)
[2020-04-21] MEDS: PANTOPRAZOLE SODIUM IV 40 MG VIAL IV PUSH (09:18)
[2020-04-21] MEDS: polyethylene glycoL 3350 17 GM POWD.PACK PO (09:18)
[2020-04-21] MEDS: DOCUSATE SODIUM LIQ 100 MG/10 ML UDC PO (09:18)
--- NOTE | 2020-04-21 12:56 | PM.DS ---
DS: Admitting Diagnosis Admitting Diagnosis Admitting Diagnosis: UTI SCROTAL CELLULITIS DS: Discharge Diagnosis Discharge Diagnosis (1) UTI (urinary tract infection): Qualifiers: Hematuria presence: without hematuria Urinary tract infection type: acute cystitis Qualified Code(s): N30.00 - Acute cystitis without hematuria Code(s): N39.0 - Urinary tract infection, site not specified Status: Acute Assessment and Plan: Patient UA indicates nitrate leukocytes and bacteria 04/18/2020 continue with Rocephin, today is day 3, urine cultures and blood cultures have no growth at this time, will continue to monitor 04/19/2020 sensitivities resulted today patient has MRSA Rocephin will be stopped and Vancomycin continued with pharmacy to follow and does, WBC improved today, patient is on isolation now 04/20/2020 continue with Vancomycin, Vancomycin trough from yesterday is low at 4.3, pharmacy is following and dosing 04/21/2020 will switch antibiotics to Bactrim on discharge, patient will need liquid (2) Scrotal swelling: Code(s): N50.89 - Other specified disorders of the male genital organs Status: Acute Assessment and Plan: 04/18/2020 scrotum does not appear swollen today, normal skin appearance, will continue with Rocephin, patient has briefs on which nursing staff is changing regularly to avoid moisture and skin breakdown 04/19/2020 scrotum is normal in appearance, patient does scratch near his groin area frequently which may have been the cause 04/20/2020 at this time I would say scrotum swelling has resolved, however today on inspection of the right gluteal ulcer and indurated area was found from just superior to that ulceration to the right side of the scrotum near the gluteal cleft on the right buttock, an ultrasound was obtained and this was discussed with Dr. Miller and it was determined this was something the patient can follow-up with his primary care provider after discharge. 04/21/2020 scrotal swelling has resolved, discussed the potential abscess site with Dr. Munoz, general surgeon, at [facility] who recommends adding Keflex and placing Pred on the ulcer site and covering with simple dressing. No recommended surgical intervention at this time. (3) Cellulitis of scrotum: Code(s): N49.2 - Inflammatory disorders of scrotum Status: Acute Assessment and Plan: 04/18/2020 scrotum does not appear swollen today, normal skin appearance, will continue with Rocephin, patient has briefs on which nursing staff is changing regularly to avoid moisture and skin breakdown, white blood count improving 04/19/2020 scrotum is normal in appearance as noted above 04/20/2020 this has resolved (4) Dementia: Code(s): F03.90 - Unspecified dementia without behavioral disturbance Status: Acute Assessment and Plan: 04/18/2020 no change in mental status, incapable of communication 04/19/2020 no change 04/20/2020 no change (5) Anemia: Code(s): D64.9 - Anemia, unspecified Status: Acute Assessment and Plan: 04/18/2020 patient's anemia is now stable, he did receive 2 units PRBCs, will continue to monitor, will contact PCP per Dr. Julien to identify chronicity of the anemia and any type of anemia this patient has, Pt is not on any home medications, also will do 2 more occult stools 1st of 3 was negative. 04/19/2020 H/H slight decreased today 8.6/27.1, will continue to monitor 04/20/2020 H/H 8.3/26.7 and will continue to monitor 04/21/2020 H/H 8.5/27.2 appears to be stable, will need follow-up with PCP (6) Hypotensive episode: Code(s): I95.9 - Hypotension, unspecified Status: Acute Assessment and Plan: 04/18/2020 vital signs are stable, no report from nursing staff of hypertension, documented vital signs reflect this, will continue to monitor 04/19/2020 vital signs stable, patient does have elevated temperature during the nigh
--- NOTE | 2020-04-21 14:20 | PC.NURSE ---
All discharge instructions and educations reviewed with due to patient being unable to comprehend. states understanding, denies any questions at discharge. All belongings gathered together and sent home with patient. Patient transferred from bed to wheelchair with 2ast and gaitbelt. Pt. accompanied to front door via wheelchair by this nurse. Transferred from wheelchair to private vehicle with 2x assist of nurse. Patient left with .
--- NOTE | 2020-04-21 18:23 | PM.EVENT ---
Event Note Event Note Event Note: I have examined the patient and reviewed the chart. I discussed the patient's care with Beverly Gates APN and agree with his assessment and plan.
--- NOTE | 2020-04-26 13:38 | PC.NURSE ---
Unable to contact for discharge call back.
== END 2020-04-21 14:20 | disposition home or self-care (01) | DRG 728 ==
LOC: CHSED 14:31 → CHS2ND 14:49
PROVIDERS: Nurse Practitioner; Nurse Practitioner Family; Admitting Provider Emergency Medicine; Emergency Provider Emergency Medicine; Visit Provider Emergency Medicine
DX: N49.2 Inflammatory disorders of scrotum (principal); N30.00 Acute cystitis without hematuria; F03.90 Unspecified dementia, unspecified severity, without behavioral disturbance, psychotic disturbance, mood disturbance, and anxiety; N39.0 Urinary tract infection, site not specified; D63.8 Anemia in other chronic diseases classified elsewhere; I95.9 Hypotension, unspecified; K40.20 Bilateral inguinal hernia, without obstruction or gangrene, not specified as recurrent; R13.10 Dysphagia, unspecified; L89.312 Pressure ulcer of right buttock, stage 2
CPT/HCPCS: 36415; 36430; 51701; 71260; 74177; 76705; 80048; 80053; 80202; 81001; 82272; 82565; 82607; 82728; 82746; 83540; 83550; 83605; 84443; 85014; 85018; 85025; 85027; 86850; 86900; 86901; 86920; 86923; 87040; 87086; 87088; 87147; 87186; 92610; 96374; 96375; 99285; A9270; C9113; J0696; J1650; J1885; J2060; J2405; J3370; J7030; J7050; P9016; Q9965

== ENCOUNTER 2021-02-21 19:43 | Inpatient (IN) | payer MEDICARE, SELFPAY ==
[2021-02-21] VITALS (20 sets, daily range): BP systolic 104–170; BP diastolic 46–92; PULSE 74–98; RESP 17–22; TEMP 36.4; O2SAT 96–98
[2021-02-21 21:09] LABS: Basophils Absolute Auto 0.1 K/mm3 (0.0-0.1); Basophils Percent Auto 0.5 % (0.2-1.2); Eosinophils Absolute Auto 0.5 K/mm3 (0-0.3); Eosinophils Percent Auto 3.2 % (0-4.4); Hematocrit 27.9 % (42.0-52.0); Hemoglobin 8.5 g/dL (14.0-18.0); Immature Granulocyte Absolute 0.05 K/mm3 (0.00-0.031); Immature Granulocyte Percent A 0.4 % (0-0.5); Lymphocytes Absolute Auto 1.28 K/mm3 (0.9-3.2); Mean Corpuscular HGB Conc 30.5 g/dl (32-36); Mean Corpuscular Hemoglobin 26.1 pg (26-34); Mean Corpuscular Volume 85.6 fl (80-100); Mean Platelet Volume 10.2 fl (7.4-10.4); Monocytes Absolute Auto 0.6 K/mm3 (0.1-0.6); Monocytes Percent Auto 4.4 % (2.6-8.5); Neutrophils Absolute Auto 11.7 K/mm3 (1.3-6.7); Neutrophils Percent Auto 82.5 % (45.5-73.1); Platelet Count Result 300 k/mm3 (150-375); Red Blood Count 3.26 M/mm3 (4.6-6.20); White Blood Count 14.2 K/mm3 (4.5-10.0)
[2021-02-21 21:18] LABS: Lactic Acid Reflex 2.2 mmol/L (0.7-2.1)
[2021-02-21 21:31] LABS: Alanine Aminotransferase 22 U/L (4-50); Albumin Level 3.8 g/dL (3.5-5.1); Alkaline Phosphatase 89 U/L (38-126); Anion Gap 16 mmol/L (8-16); Aspartate Amino Transferase 34 U/L (17-59); Bilirubin,Total 0.3 mg/dL (0.2-1.3); Blood Urea Nitrogen 25 mg/dL (9-20); Calcium 9.2 mg/dL (8.4-10.2); Carbon Dioxide 24 mmol/L (22-30); Chloride 96 mmol/L (98-107); Estimated Glomerular Filt Rate > 60; Glucose 124 mg/dL (65-110); Sodium 136 mmol/L (137-145)
--- NOTE | 2021-02-21 22:58 | ED.GENADULT ---
HPI - General Adult General Chief complaint: Skin/Abscess/Foreign Body Stated complaint: pressure sore on bottom Time Seen by Provider: 02/21/21 20:05 Source: family Mode of arrival: wheelchair Limitations: dementia History of Present Illness HPI narrative: 85-year-old with a history of dementia was brought in by his in a wheelchair with complaints of decubitus ulcer in the sacral area. Patient reports that it started small and has been gradually getting bigger in the last 3 weeks noticed some drainage. She states that she is unable to manage at home. However she denies any fever or chills. Patient is nonverbal. Onset (ago): week(s) (3) Location: back Severity: moderate Exacerbating factors: none Associated symptoms: denies other symptoms Related Data Allergies Allergy/AdvReac Type Severity Reaction Status Date / Time No Known Allergies Allergy Verified 04/15/20 13:35 Review of Systems Review of Systems: ROS unobtainable: Yes unobtainable due to mental status PMFSH Past Medical History Medical History Dementia Social History Social History Smoking status: Unknown if ever smoked Alcohol intake: never Substance use: never Gender identity (if verbalized by the patient): Male Spiritual care concerns: No Exam Narrative: GENERAL: alert , lying in position. HEAD: Normocephalic, atraumatic. EYES: PERRLA and EOMI. NECK: Supple. CHEST: Clear to auscultation. No respiratory distress. HEART: Regular rate and rhythm. No murmur heard. Normal peripheral pulses. ABDOMEN: Soft, nontender, nondistended, EXTREMITIES: in position SKIN: Warm, dry, no rash. has sacral decubitus ulcer stage 1V NEURO: No focal deficits. Alert and oriented x3. PSYCH: Normal mood and affect. Course Course Emergency Course: Inform patient's about his lab work will admit him for IV antibiotic consult wound care and consult social media intern for home health. Discussed with Dr. Lamb who agreed to admit the patient. Vital Signs Vital signs: Vital Signs Pulse Rate 98 02/21/21 20:09 Respiratory Rate 21 H 02/21/21 20:09 Temperature 36.4 C 02/21/21 20:11 Pulse Rate 75 02/21/21 22:30 Respiratory Rate 20 02/21/21 22:30 Blood Pressure 136/63 02/21/21 22:16 Pulse Oximetry 97 02/21/21 22:16 Medical Decision Making Vital Signs Vital Signs: Vital Signs Pulse Rate 98 02/21/21 20:09 Respiratory Rate 21 H 02/21/21 20:09 Temperature 36.4 C 02/21/21 20:11 Pulse Rate 75 02/21/21 22:30 Respiratory Rate 20 02/21/21 22:30 Blood Pressure 136/63 02/21/21 22:16 Pulse Oximetry 97 02/21/21 22:16 Lab Data Result diagrams: 02/21/21 21:04 02/21/21 21:04 Labs: Lab Results 02/21/21 02/21/21 02/21/21 Range/Units 21:04 21:04 21:04 WBC 14.2 H (4.5-10.0) K/mm3 RBC 3.26 L (4.6-6.20) M/mm3 Hgb 8.5 L (14.0-18.0) g/dL Hct 27.9 L (42.0-52.0) % MCV 85.6 (80-100) fl MCH 26.1 (26-34) pg MCHC 30.5 L (32-36) g/dl RDW 17.0 H (11.5-14.5) % Plt Count 300 (150-375) k/mm3 MPV 10.2 (7.4-10.4) fl Immature Gran % (Auto) 0.4 (0-0.5) % Neut % (Auto) 82.5 H (45.5-73.1) % Lymph % (Auto) 9.0 L (18.3-44.2) % [place] % (Auto) 4.4 (2.6-8.5) % Eos % (Auto) 3.2 (0-4.4) % Baso % (Auto) 0.5 (0.2-1.2) % Lymph # (Auto) 1.28 (0.9-3.2) K/mm3 [place] # (Auto) 0.6 (0.1-0.6) K/mm3 Eos # (Auto) 0.5 H (0-0.3) K/mm3 Baso # (Auto) 0.1 (0.0-0.1) K/mm3 Abs Immat Gran (auto) 0.05 H (0.00-0.031) K/mm3 Absolute Neuts (auto) 11.7 H (1.3-6.7) K/mm3 Absolute Nucleated RBC 0.0 (0.0-0.012) K/mm3 Nucleated RBC % 0.0 (0.0-0.2) % Sodium 136 L (137-145) mmol/L Potassium 4.0 (3.4-5.0) mmol/L Chloride 96 L (98-107) mmol/L Carbon Dioxide 24 (22-30) mmol/L
[2021-02-21] MEDS: LACTATED RINGERS 1,000 ML 75 ML IV CONT (23:20)
--- NOTE | 2021-02-21 23:51 | PM.IMHP ---
H&P: HPI History of Present Illness Date/Time: 02/21/21 23:51 Chief Complaint: Wound Narrative: This is an 85-year-old male with past medical history significant for advanced dementia patient lives at home and his main caregiver is his who brought him today to the emergency room due to wound in the sacral area that recently started having malodorous discharge and has gotten bigger as well. Patient is nonverbal and unable to give any history which has been obtained by reviewing medical records. Preliminary workup was significant for a lactic acid of 2.2 a leukocytosis of 14,000. also states that she is not able to take care of him at home. Review of Systems Review of Systems: ROS unobtainable: Yes unobtainable due to mental status (Advanced dementia) [facility] Past Medical History Medical History Dementia Family History Family History (Updated 02/22/21 @ 01:41 by Mercedes Donovan RN) Mother Hypertension Father Aneurysm Social History Social History Smoking status: Never smoker Alcohol intake: never Substance use: never Gender identity (if verbalized by the patient): Male Spiritual care concerns: No Meds Home Medications and Allergies Home Medications Medication Instructions Recorded Confirmed Type cephalexin [Keflex] 500 mg PO Q12H #20 cap 04/21/20 Rx sulfamethoxazole-trimethoprim 1 tablet PO Q12H 10 Days #20 tablet 04/21/20 Rx Allergies Allergy/AdvReac Type Severity Reaction Status Date / Time No Known Allergies Allergy Verified 04/15/20 13:35 Vital Signs Vital Signs - 24 hr 02/21/21 20:09 02/21/21 20:11 02/21/21 20:17 Temperature 97.6 F Pulse Rate 98 81 78 Respiratory Rate 21 H 22 H 20 Blood Pressure 129/46 L 104/49 L Pulse Oximetry 98 97 02/21/21 20:18 02/21/21 20:30 02/21/21 20:31 Temperature Pulse Rate 76 76 76 Respiratory Rate 20 20 18 Blood Pressure 116/50 L Pulse Oximetry 96 96 96 02/21/21 20:45 02/21/21 20:46 02/21/21 21:00 Temperature Pulse Rate 74 75 81 Respiratory Rate 22 H 19 17 Blood Pressure 117/50 L Pulse Oximetry 96 98 02/21/21 21:01 02/21/21 21:15 02/21/21 21:16 Temperature Pulse Rate 78 74 76 Respiratory Rate 20 18 20 Blood Pressure 134/53 L 135/64 Pulse Oximetry 02/21/21 21:30 02/21/21 21:45 02/21/21 22:00 Temperature Pulse Rate 76 76 74 Respiratory Rate 18 18 19 Blood Pressure Pulse Oximetry 02/21/21 22:02 02/21/21 22:15 02/21/21 22:16 Temperature Pulse Rate 74 77 74 Respiratory Rate 18 21 H 18 Blood Pressure 134/62 136/63 Pulse Oximetry 97 02/21/21 22:30 02/21/21 23:19 Temperature Pulse Rate 75 77 Respiratory Rate 20 22 H Blood Pressure 170/92 H Pulse Oximetry 98 Exam Narrative: Laying in [facility] Const: General: comfortable, no acute distress, well developed and awake Nutritional Appearance: thin Orientation/consciousness: Other orientation findings (Advanced dementia) HENMT: Head: normal to inspection, normocephalic and atraumatic General nose exam: Normal external nose present Face and sinus: normal facial exam Eyes: General: appearance normal, both eyes and all related structures Alignment and Position: alignment normal Sclera: sclerae normal Pupils: Equal, round and reactive pupils present EOM: EOMs intact bilaterally Neck: Neck: normal visual inspection, full ROM, no lymphadenopathy, supple and no JVD Thyroid: thyroid normal Lymphatic: no lymphadenopathy noted Resp: Effort & Inspection: normal respiratory effort Auscultation: clear to auscultation bilaterally Cardio: Jugular venous distension: no JVD Rate: regular rate Rhythm: regular rhythm Heart sounds: S1 normal heart sound present and S2 normal heart sound present GI: GI Palp: Yes Soft to palpation, No Tenderness to palpation present (GI), No Guarding due to palpation present (
[2021-02-22 00:10] LABS: Reflex Lactic Acid Yes or No Add Lactic
--- NOTE | 2021-02-22 00:54 | ADMGEN ---
This patient, Keith Hobson, was admitted to [facility] Surg Room 323-02. Patient/family oriented to hospital policies and general routines including ID bracelet, bed and alarms, visiting hours, pain management, procedures, bathroom and other care routines, personal items, smoking policy, room service/diet, and visiting hours. Information on how to activate the Rapid Response Team has been discussed. Patient/Family are encouraged to report perceived risks to care and to ask questions if they do not understand what they are told or what they should do.
[2021-02-22 01:00] VITALS: BP 96/30; PULSE 80; RESP 20; TEMP 36.2; O2SAT 99
[2021-02-22 03:56] LABS: Lactic Acid 1.8 mmol/L (0.7-2.1)
[2021-02-22 06:00] VITALS: BP 118/66; PULSE 60; RESP 18; TEMP 36.1; O2SAT 95
[2021-02-22 07:00] LABS: Estimated CRCL calculation 62 ml/min; Estimated Glomerular Filt Rate > 60
[2021-02-22] MEDS: SOD HYPOCHLORITE 1/4 STRENGTH 473 ML 1 APPLIC TOPICAL (12:00)
--- NOTE | 2021-02-22 12:57 | PM.CNGS ---
Assessment and Plan Assessment and plan (1) Decubitus ulcer of sacral region, stage 4: Code(s): L89.154 - Pressure ulcer of sacral region, stage 4 Status: Acute Assessment and Plan: The patient's wound was evaluated with the wound care nurse and Dr. Wray. He has a necrotic sacral decubitus ulcer with cloudy drainage and odor. Will initiate local wound care with BID Dakin's solution dressing changes. Continue IV antibiotics. I discussed plan of care with the patient's via telephone, and we spoke about treatment options, including the option of palliative care. She did not want to consider palliative care at this time and would like to continue fully treating the wound even if it involved surgery. I discussed the extensive nature of this wound and the long-term care that will accompany treatment. No plans for surgical intervention today, but depending on how he responds to wound care, there could be a need for surgical debridement in the future. Will re-evaluate tomorrow. (2) Dementia: Code(s): F03.90 - Unspecified dementia without behavioral disturbance Status: Acute Assessment and Plan: Advanced dementia, nonverbal, and bedbound. Continue supportive care. (3) Anemia: Code(s): D64.9 - Anemia, unspecified Status: Acute Additional Plan I have discussed the patient's case and plan of care with Dr. Wray. Thank you for allowing us to see the patient in consultation and we will continue to follow along with you. History of Present Illness Consult details Consult date: 02/22/21 Reason for consult: wound care (Sacral decubitus ulcer) Requesting physician: Lyssa Lamb MD Narrative: This is an 85-year-old male with a history of advanced dementia who is nonverbal with no family at the bedside. I did call his to discuss his care and for historical questions as well. Therefore, his history is combined by report of his and review of the electronic medical record. The patient is full care at home where his and to others help give 24/7 care. She reports he is bed-bound throughout the day, but sits up in a wheelchair for meals and is fed his meals. She noticed a sacral wound a few weeks ago. They have been cleaning this daily with soap and water, and putting zinc oxide on the wound. She reports it was not improving, and over the last few days she began to notice an odor and some drainage. Due to this, she wanted him evaluated further. In the ER, he was found have a sacral [place] [id number]. Was started on IV antibiotics and admitted to the hospitalist service. Wound Care was consulted, as well as our service for surgical evaluation of the sacral decubitus ulcer. The patient is now seen on the medical floor and opens his eyes, but does not track or answer any questions. Review of Systems Review of Systems: ROS unobtainable: Yes unobtainable due to medical condition PMFSH Past Medical History Medical History Dementia Surgical History Surgical History No pertinent past surgical history Family History Family History Mother Hypertension Father Aneurysm Social History Social History Social History: Lives at home with his , Kristin, who is his caregiver. She has help from two others to provide full care for the patient. He is nonverbal and bedbound. Smoking status: Never smoker Alcohol intake: never Substance use: never Living arrangements: with family Gender identity (if verbalized by the patient): Male Spiritual care concerns: No Meds Home Medications and Allergies Home Medications Medication Instructions Recorded Confirmed Type No Home Medications 02/22/21 02/22/21 Histor
[2021-02-22 13:28] VITALS: O2SAT 95
[2021-02-22 14:00] VITALS: BP 148/72; PULSE 82; RESP 16; TEMP 36.9; O2SAT 98
--- NOTE | 2021-02-22 17:05 | PM.IMPN ---
Progress Note: A&P Assessment and Plan (1) Decubitus ulcer of sacral region, stage 4: Code(s): L89.154 - Pressure ulcer of sacral region, stage 4 Status: Acute Assessment and Plan: Lactic acid slightly elevated at 2.2 but not felt to have sepsis. WBC at 14K with normal vital signs without fever. Started on vancomycin and Primaxin added. BCx pending. Surgery and Wound care consult obtained and appreciate their input. Continue current wound care. Continue IV abx until BCx resulted. Continue supportive care (2) Dementia: Code(s): F03.90 - Unspecified dementia without behavioral disturbance Status: Acute Assessment and Plan: Patient with severe dementia. Stable. Plan is for patient to return home with his . Stop IV fluids. Monitor oral intake (3) Anemia: Code(s): D64.9 - Anemia, unspecified Status: Acute Assessment and Plan: Patient has chronic anemia with hemoglobin in the 8 range mostly. Workup last year was consistent with anemia chronic disease. Hemoglobin low but stable. Continue to follow. (4) DVT prophylaxis: Code(s): Z29.9 - Encounter for prophylactic measures, unspecified Status: Acute Assessment and Plan: Lovenox Additional Plan Irregular rhythm - check EKG if able. Subjective Date/time seen: 02/22/21 17:05 Interval history: 85yo male with advanced dementia here for sacral ulcer. Patient is awake but nonverbal and unable to provide history. Discussed with family. All questions answered. 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 Per wound RN, coccyx is unstagable with strong odor but not felt to be infected measuring 5x3x2 with necrosis. No bone exposure. Objective Data Vital Signs Vital Signs: Vital Signs - 24 hr 02/21/21 20:09 02/21/21 20:11 02/21/21 20:17 Temperature 97.6 F Pulse Rate 98 81 78 Respiratory Rate 21 H 22 H 20 Blood Pressure 129/46 L 104/49 L Pulse Oximetry 98 97 02/21/21 20:18 02/21/21 20:30 02/21/21 20:31 Temperature Pulse Rate 76 76 76 Respiratory Rate 20 20 18 Blood Pressure 116/50 L Pulse Oximetry 96 96 96 02/21/21 20:45 02/21/21 20:46 02/21/21 21:00 Temperature Pulse Rate 74 75 81 Respiratory Rate 22 H 19 17 Blood Pressure 117/50 L Pulse Oximetry 96 98 02/21/21 21:01 02/21/21 21:15 02/21/21 21:16 Temperature Pulse Rate 78 74 76 Respiratory Rate 20 18 20 Blood Pressure 134/53 L 135/64 Pulse Oximetry 02/21/21 21:30 02/21/21 21:45 02/21/21 22:00 Temperature Pulse Rate 76 76 74 Respiratory Rate 18 18 19 Blood Pressure Pulse Oximetry 02/21/21 22:02 02/21/21 22:15 02/21/21 22:16 Temperature Pulse Rate 74 77 74 Respiratory Rate 18 21 H 18 Blood Pressure 134/62 136/63 Pulse Oximetry 97 02/21/21 22:30 02/21/21 23:19 02/22/21 01:00 Temperature 97.2 F L Pulse Rate 75 77 80 Respiratory Rate 20 22 H 20 Blood Pressure 170/92 H 96/30 L Pulse Oximetry 98 99 02/22/21 06:00 02/22/21 13:28 02/22/21 14:00 Temperature 97.0 F L 98.4 F Pulse Rate 60 82 Respiratory Rate 18 16 Blood Pressure 118/66 148/72 H Pulse Oximetry 95 95 98 Intake/Output Intake/Output: Intake & Output 02/19/21 02/20/21 02/21/21 02/22/21 23:59 23:59 23:59 23:59 Intake Total 100 Balance 100 Meds/Results Medications: Active Medications Generic Name Dose Route Start Last Admin Trade Name Freq PRN Reason Stop Dose Admin Acetaminophen 650 mg in 65 mls @ 260 mls/hr 02/21/21 22:43 Ofirmev 650 Mg Ivpb IVPB 02/22/21 22:44 Q6H PRN Mild Pain
--- NOTE | 2021-02-22 17:17 | ECG_ITS ---
Measurements Intervals [place] Rate: 59 P: 47 MI: 157 QRS: 72 QRSD: 104 T: 49 QT: 404 QTc: 401 Interpretive Statements SINUS BRADYCARDIA BASELINE ARTIFACT- I, III, AVL BORDERLINE ECG Electronically Signed On 02-23-2021 7:50:34 CDT by Gunnar Farrell D.O.
[2021-02-22 21:32] VITALS: BP 154/62; PULSE 54; RESP 18; TEMP 36.9; O2SAT 98
[2021-02-23] VITALS: BP 154/62; PULSE 64; RESP 18; TEMP 36.9; O2SAT 98
[2021-02-23] MEDS: SOD HYPOCHLORITE 1/4 STRENGTH 473 ML 1 APPLIC TOPICAL ×2 (02:00→14:23)
[2021-02-23 05:10] VITALS: BP 136/107; PULSE 101; RESP 18; TEMP 36; O2SAT 100
[2021-02-23 06:43] LABS: Hematocrit 23.8 % (42.0-52.0); Hemoglobin 7.4 g/dL (14.0-18.0); Mean Corpuscular HGB Conc 31.1 g/dl (32-36); Mean Corpuscular Hemoglobin 26.1 pg (26-34); Mean Corpuscular Volume 83.8 fl (80-100); Mean Platelet Volume 10.3 fl (7.4-10.4); Platelet Count Result 306 k/mm3 (150-375); Red Blood Count 2.84 M/mm3 (4.6-6.20); Red Cell Distribution Width 16.5 % (11.5-14.5); White Blood Count 8.1 K/mm3 (4.5-10.0)
[2021-02-23 06:53] LABS: Anion Gap 6 mmol/L (8-16); Blood Urea Nitrogen 17 mg/dL (9-20); Calcium 8.5 mg/dL (8.4-10.2); Carbon Dioxide 23 mmol/L (22-30); Chloride 100 mmol/L (98-107); Estimated CRCL calculation 76 ml/min; Estimated Glomerular Filt Rate > 60; Glucose 112 mg/dL (65-110); Potassium 3.5 mmol/L (3.4-5.0); Sodium 129 mmol/L (137-145)
[2021-02-23] MEDS: ENOXAPARIN 40 MG/0.4 ML SYRINGE SUB-Q (09:03)
--- NOTE | 2021-02-23 09:49 | PM.PNGS ---
Progress Note: A&P Assessment and Plan (1) Decubitus ulcer of sacral region, stage 4: Code(s): L89.154 - Pressure ulcer of sacral region, stage 4 Status: Acute Assessment and Plan: cont local wound care c Brittaney', ok to dc home from surgical standpoint c f/u in wound care clinic Subjective Subjective Date/Time Seen: 02/23/21 09:49 no acute issues overnight Review of Systems Review of Systems: ROS unobtainable: Yes unobtainable due to mental status Exam Const: General: comfortable and no acute distress Nutritional Appearance: malnourished Orientation/consciousness: confusion Resp: Effort & Inspection: normal respiratory effort Auscultation: diminished lung sounds Cardio: Rate: tachycardic Rhythm: regular rhythm GI: Inspection: normal to inspection and non-distended GI Palp: No Tenderness to palpation present (GI) Skin: Other: stage 4 sacral ulcer - dressing C/D/I, no s/s active infection Objective Data Vital Signs Vital Signs: Vital Signs - 24 hr 02/22/21 13:28 02/22/21 14:00 02/22/21 21:32 Temperature 36.9 C 36.9 C Pulse Rate 82 54 L Respiratory Rate 16 18 Blood Pressure 148/72 H 154/62 H Pulse Oximetry 95 98 98 02/23/21 00:00 02/23/21 05:10 Temperature 36.9 C 36.0 C L Pulse Rate 64 101 H Respiratory Rate 18 18 Blood Pressure 154/62 H 136/107 H Pulse Oximetry 98 100 Intake/Output Intake/Output: Intake & Output 02/20/21 02/21/21 02/22/21 02/23/21 23:59 23:59 23:59 23:59 Intake Total 550 1100 Balance 550 1100 Meds/Results Medications: Active Medications Generic Name Dose Route Start Last Admin Trade Name Freq PRN Reason Stop Dose Admin Enoxaparin Sodium 40 mg 02/23/21 09:00 02/23/21 09:03 Enoxaparin 40 Mg/0.4 Ml Syringe SUB-Q 40 mg DAILY MORENO Administration Lactated Ringer's 1,000 mls @ 75 mls/hr 02/21/21 22:45 02/23/21 02:00 Lr - Lactated Ringers Iv IV CONT Infused .[id number] MORENO Infusion Vancomycin HCl 750 mg in 250 mls @ 250 mls/hr 02/22/21 18:00 02/22/21 17:40 Vancomycin 750 Mg/D5w 250 Ml IVPB Infused Q18H MOREON Infusion Imipenem/Cilastatin Sodium 400 100 mls @ 300 mls/hr 02/22/21 09:00 02/23/21 09:02 mg/ Dextrose IVPB 125 mls/hr Q6H MORENO Administration Sodium Hypochlorite 1 applic 02/22/21 09:00 02/23/21 02:00 Sod Hypochlorite 1/4 Strength 473 Ml TOPICAL 1 applic Q12HR MORENO Administration Labs Labs: Laboratory Results - last 24 hr 02/23/21 02/23/21 06:14 06:14 WBC 8.1 RBC 2.84 L Hgb 7.4 L Hct 23.8 L MCV 83.8 MCH 26.1 MCHC 31.1 L RDW 16.5 H Plt Count 306 MPV 10.3 Sodium 129 L Potassium 3.5 Chloride 100 Carbon Dioxide 23 Anion Gap 6 L BUN 17 Creatinine 0.40 L Estim Creat Clear Calc 76 Estimated GFR > 60 Glucose 112 H Calcium 8.5
[2021-02-23 14:00] VITALS: BP 133/70; PULSE 88; RESP 12; TEMP 36.2; O2SAT 99
--- NOTE | 2021-02-23 14:25 | PM.DS ---
DS: Admitting Diagnosis Admitting Diagnosis sacral wound DS: Discharge Diagnosis Discharge Diagnosis (1) Decubitus ulcer of sacral region, stage 4: Code(s): L89.154 - Pressure ulcer of sacral region, stage 4 Status: Acute Assessment and Plan: Lactic acid slightly elevated at 2.2 but not felt to have sepsis. WBC at 14K with normal vital signs without fever. Started on vancomycin and Primaxin. BCx NGTD. Surgery and Wound care consult obtained and appreciate their input. Dressing changes ordered. Discussed with surgery who did not feel continued abx needed. Plan discharge with plans for (2) Dementia: Code(s): F03.90 - Unspecified dementia without behavioral disturbance Status: Acute Assessment and Plan: Patient with severe dementia. Stable. Plan is patient to return home with his . (3) Anemia: Code(s): D64.9 - Anemia, unspecified Status: Acute Assessment and Plan: Patient has chronic anemia with hemoglobin in the 8 range mostly. Workup last year was consistent with anemia chronic disease. Hemoglobin low but stable here. DS: Summary Hospital Course Hospital Course: 85yo male with advanced dementia here for sacral ulcer. 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 DS: Data Data Completed and Pending Labs on day of discharge: Labs from last 24 hours 02/23/21 02/23/21 06:14 06:14 WBC 8.1 RBC 2.84 L Hgb 7.4 L Hct 23.8 L MCV 83.8 MCH 26.1 MCHC 31.1 L RDW 16.5 H Plt Count 306 MPV 10.3 Sodium 129 L Potassium 3.5 Chloride 100 Carbon Dioxide 23 Anion Gap 6 L BUN 17 Creatinine 0.40 L Estim Creat Clear Calc 76 Estimated GFR > 60 Glucose 112 H Calcium 8.5 Preliminary micro results at discharge 02/22/21 00:11 Blood Culture - Preliminary Blood 02/22/21 00:11 Blood Culture - Preliminary Blood Discharge Plan Discharge Attending physician on discharge: Francois Campbell Consulting providers: Stacey Wray Discharging Clinician: Francois Campbell Anticipated Discharge Date/Time: 02/23/21 14:33 Patient Disposition: Home Health Service Activity: as tolerated Diet: as tolerated Discharge Instructions: Please avoid large gathering, wear face coverings in public and practice social distance. Contact your doctor or call 911 and come to the Emergency Room if you have fevers or other worrisome symptoms. Avoid NSAIDs (ibuprofen, naproxen, Aleve). Tylenol is safe to take. Follow-up with your doctor in 2-4 weeks Home health with assistance with dressing changes Continue dressing changes every 12 hours by applying a gauze moistened with Dakins solution to the open sacrum ulcer and cover with dry dressing. Patient Instructions: Antibiotic Form Stand Alone Forms: General Discharge Information Follow-up/Referrals: PHYSICIAN NOT ON STAFF,NONSTAFF [Primary Care Provider] - Call for Appointment Discharge Medications: New Dakin's Solution 0.125 % Solution 1 applic topical Q12HR Qty: 473 RF: 3 Continued No Home Medications RF: 0 Date of admission: 02/21/21 23:43 Primary Care Provider: PHYSICIAN NOT ON STAFF,NONSTAFF Admitting Provider: Lyssa Lamb V. Attending physician on admission: Lyssa Lamb V. Condition: Stable
== END 2021-02-23 20:40 | disposition home health service (06) | DRG 594 ==
LOC: ANHED 22:58 → ANH3MEDSUR 02-22 12:24
PROVIDERS: Admitting Provider Internal Medicine; Emergency Provider Family Medicine; Visit Provider Internal Medicine
DX: L89.154 Pressure ulcer of sacral region, stage 4 (principal); F03.90 Unspecified dementia, unspecified severity, without behavioral disturbance, psychotic disturbance, mood disturbance, and anxiety; D64.9 Anemia, unspecified
CPT/HCPCS: 36415; 80048; 80053; 82565; 83605; 85025; 85027; 87040; 93005; 99285; A9270; J0743; J1650; J3370; J7120